=== PATIENT | female | born 1995 | race Caucasian/White ===

== ENCOUNTER 2020-06-30 09:14 | Emergency (ER) | payer MEDICAID ==
[~2020-06-30] VITALS: Ht 152.4 cm; Wt 51.3 kg
--- NOTE | 2020-06-30 09:45 | NUR ---
BIB SELF FROM HOME C/O RIGHT SIDED FACIAL NUMBNESS, UNABLE TO BLINK RIGHT EYE - SLURRING OF SPEECH, DENIES ANY WEAKNESS TO EXTREMITIES. VS CHECKED. STABLE. SEEN BY
[2020-06-30] MEDS ORDERED: KETOROLAC TROMETHAMINE 15 MG/ML VIAL ONE (09:54)
[2020-06-30] MEDS ORDERED: diphenhydrAMINE HCL 50 MG/ML VIAL ONE (09:54)
[2020-06-30] MEDS ORDERED: METOCLOPRAMIDE HCL 10 MG/2 ML VIAL ONE (09:54)
[2020-06-30] MEDS ORDERED: KETOROLAC TROMETHAMINE INJ 30 MG/ML VIAL IV ONE (10:00)
[2020-06-30] MEDS ORDERED: METOCLOPRAMIDE HCL 10 MG/2 ML VIAL IV ONE (10:00)
[2020-06-30] MEDS ORDERED: diphenhydrAMINE HCL 50 MG/ML VIAL IV ONE (10:00)
[2020-06-30] MEDS ORDERED: IV NS 0.9% 1,000 ML IV ONE (10:00)
--- NOTE | 2020-06-30 10:00 | NUR ---
urine collected sent to lab
[2020-06-30 10:44] VITALS: BP 116/71
--- NOTE | 2020-06-30 10:45 | NUR ---
IV removed. Catheter intact and site benign. Pressure and 4x4 applied to site. No bleeding noted.Patient discharged to home in stable condition. Written and verbal after care instructions given. Patient verbalizes understanding of instruction.
== END 2020-06-30 10:44 | disposition home or self-care (01) ==
LOC: ER 09:23
DX: G51.0 Bell's palsy (principal); G43.909 Migraine, unspecified, not intractable, without status migrainosus
CPT/HCPCS: 96361; 96374; 96375; 99284; J1200; J1885; J2765; J7030